=== PATIENT | male | born 1990 | race Caucasian/White ===

== ENCOUNTER 2017-06-15 10:11 | Emergency (ER) | payer OTHER ==
[~2017-06-15] VITALS: Ht 175.3 cm; Wt 115.9 kg
[~2017-06-15 10:11] MED LIST: ALBU17IN INH; BENA25CA4 PO; CLAR10CA3 PO; DOXE25CA PO; FAMO20TA PO; HYDR-3363 PO; HYDR50TA70 PO; MYLASUS16 PO; PRED10TA PO; PRED20TA PO; RANI15TA PO; TYLE325T5 PO; XYZA5TAB2 PO; ZANT1TAB PO
[2017-06-15] MEDS ORDERED: IBUP-1022 PO (10:39)
[2017-06-15] MEDS ORDERED: NAPR500T PO (11:04)
[2017-06-15 11:19] VITALS: BP 136/74
== END 2017-06-15 11:26 | disposition home or self-care (01) ==
LOC: M ED 10:11
DX: S39.011A Strain of muscle, fascia and tendon of abdomen, initial encounter (principal); X50.9XXA Other and unspecified overexertion or strenuous movements or postures, initial encounter; Y92.59 Other trade areas as the place of occurrence of the external cause; Y93.89 Activity, other specified; Y99.0 Civilian activity done for income or pay; J45.909 Unspecified asthma, uncomplicated; K21.9 Gastro-esophageal reflux disease without esophagitis; F17.210 Nicotine dependence, cigarettes, uncomplicated; Z79.52 Long term (current) use of systemic steroids; Z79.899 Other long term (current) drug therapy

== ENCOUNTER → 2019-01-25 | Outpatient (CLI) | payer OTHER ==
[~2019-01-25] MED LIST changes: +IBUP-1022 PO; +NAPR-837 PO; +PRED-351 PO; -PRED10TA PO; +ZANT150T15 PO; -ZANT1TAB PO
--- NOTE | 2019-01-25 14:44 | REP ---
RIGHT KNEE, FIVE VIEWS: HISTORY: Contusion. There is no acute fracture or dislocation. The joint spaces are normal in appearance. IMPRESSION: There is no acute fracture or dislocation. Electronically Signed by Jose Alfredo Rivera MD 01/25/2019 02:47 P
--- NOTE | 2019-01-25 15:03 | REP ---
Right calf: Two views. History: Contusion. Findings: AP and lateral views of the right calf demonstrate normal bones, joints and soft tissues. No fracture or subluxation is seen. Impression: Negative right calf radiographs. Electronically Signed by Sher Muse MD 01/25/2019 02:54 P
== END ==
LOC: M WUC 13:59
PROVIDERS: ATTEND Physician Assistant
DX: S80.01XA Contusion of right knee, initial encounter (principal); S80.11XA Contusion of right lower leg, initial encounter; X58.XXXA Exposure to other specified factors, initial encounter; Y92.89 Other specified places as the place of occurrence of the external cause

== ENCOUNTER 2019-05-15 20:44 | Emergency (ER) | payer OTHER ==
[2019-05-15 22:40] LABS: BASO # 0.1 10^3/uL (0.0-0.2); BASO % 0.3 % (0.0-1.0); EOS # 0.1 10^3/uL (0.0-0.50); EOS % 0.4 % (0.0-3.0); HEMATOCRIT 45.9 % (42.0-52.0); HEMOGLOBIN 16.4 g/dl (13.5-17.5); LYMPH # 2.1 10^3/uL (1.5-6.5); MEAN CORPUSCULAR HEMOGLOBIN 30.7 pg (27.0-33.0); MEAN CORPUSCULAR HGB CONC 35.7 g/dl (32.0-36.5); MONO # 0.7 10^3/uL (0.0-0.8); MONO % 4.1 % (0.0-5.0); NEUTROPHILS # 14.6 10^3/uL (1.8-7.7); NEUTROPHILS % 82.7 % (36.0-66.0); PLATELET COUNT, AUTOMATED 259 10^3/uL (150-450); RED BLOOD COUNT 5.34 10^6/uL (4.30-6.10); WHITE BLOOD COUNT 17.7 10^3/uL (4.0-10.0)
[2019-05-15 23:05] LABS: ALBUMIN 4.2 GM/DL (3.2-5.2); ALT/SGPT 31 U/L (12-78); BILIRUBIN,DIRECT 0.2 MG/DL (0.0-0.2); BLOOD UREA NITROGEN 15 MG/DL (7-18); CALCIUM LEVEL 9.8 MG/DL (8.5-10.1); CARBON DIOXIDE LEVEL 24 MEQ/L (21-32); CHLORIDE LEVEL 106 MEQ/L (98-107); CREATININE FOR GFR 1.24 MG/DL (0.70-1.30); GLOMERULAR FILTRATION RATE > 60.0 (>60); GLUCOSE, FASTING 114 MG/DL (70-100); LIPASE 73 U/L (73-393); POTASSIUM SERUM 3.8 MEQ/L (3.5-5.1); SODIUM LEVEL 140 MEQ/L (136-145)
[2019-05-15] MEDS ORDERED: KETOROLAC 30 MG/ML VIAL (J1885) IV ONE (23:15)
[2019-05-15] MEDS ORDERED: METOCLOPRAMIDE INJ 10MG/2ML VIAL (J2765) IV ONE (23:15)
[2019-05-15] MEDS ORDERED: NS 1,000 ML IV ONE (23:15)
[2019-05-15] MEDS ORDERED: IPRATROPIUM 0.5MG/ALBUTEROL 2.5MG INH SOL UD 3ML (DUONEB)(J7620) NEB PRN (23:15)
[2019-05-16 00:41] VITALS: BP 118/57
[2019-05-16] MEDS ORDERED: METHOCARBAMOL 1,000 MG/10 ML VIAL (J2800) IV ONE (00:45)
[2019-05-16] MEDS ORDERED: ROBA500T PO (01:33)
[2019-05-16] MEDS ORDERED: NAPR-837 PO (01:33)
[2019-05-16] MEDS ORDERED: REGL10TA6 PO (01:34)
--- NOTE | 2019-05-16 10:18 | REP ---
Chest x-ray: Two views. History: Wheezing, elevated white blood cell count, cough. . Comparison study: March 01, 2014 . Findings: The lungs are well inflated and free of infiltrate. The pleural angles are sharp. The heart size is normal. Pulmonary vasculature is not increased. No significant bony abnormality is seen. The soft tissues of the left breast or pectoralis muscle are again noted to be somewhat asymmetric on the frontal radiograph. This is unchanged from 2014 prior study. Impression: No active disease. Electronically Signed by Sher Muse MD 05/16/2019 10:09 A
== END 2019-05-16 01:47 | disposition home or self-care (01) ==
LOC: M ED 20:44
DX: M62.830 Muscle spasm of back (principal); D72.829 Elevated white blood cell count, unspecified
CPT/HCPCS: 71046; 80047; 80048; 80076; 81001; 83690; 85025; 96361; 96374; 96375; 99284; J1885; J2765; J2800

== ENCOUNTER 2019-09-04 12:23 | Emergency (ER) | payer MEDICAID, OTHER, SELFPAY ==
[~2019-09-04] VITALS: Ht 175.3 cm; Wt 112.7 kg
[~2019-09-04 12:23] MED LIST changes: +REGL10TA6 PO; +ROBA500T PO
[2019-09-04] MEDS ORDERED: diphenhydrAMINE INJ 50MG/ML VIAL (J1200) IV ONE (13:00)
[2019-09-04] MEDS ORDERED: methylPREDNISolone INJ 125 MG/2 ML VIAL (J2930) IV ONE (13:00)
[2019-09-04] MEDS ORDERED: FAMOTIDINE INJ 20MG/2ML VIAL (S0028) IVP ONE (13:00)
[2019-09-04] MEDS ORDERED: NS 1,000 ML IV ONE (13:00)
[2019-09-04 13:33] LABS: BASO % 0.2 % (0.0-1.0); EOS # 0.1 10^3/uL (0.0-0.5); EOS % 0.5 % (0.0-3.0); HEMATOCRIT 45.8 % (42.0-52.0); HEMOGLOBIN 15.7 g/dl (13.5-17.5); LYMPH # 2.1 10^3/uL (1.5-5.0); LYMPH % 13.2 % (24.0-44.0); MEAN CORPUSCULAR HEMOGLOBIN 29.3 pg (27.0-33.0); MEAN CORPUSCULAR HGB CONC 34.3 g/dl (32.0-36.5); MEAN CORPUSCULAR VOLUME 85.6 fl (80.0-96.0); MONO # 0.6 10^3/uL (0.0-0.8); MONO % 3.7 % (0.0-5.0); PLATELET COUNT, AUTOMATED 306 10^3/uL (150-450); RED BLOOD COUNT 5.35 10^6/uL (4.30-6.10); WHITE BLOOD COUNT 15.9 10^3/uL (4.0-10.0)
[2019-09-04 14:04] LABS: BLOOD UREA NITROGEN 15 MG/DL (7-18); CALCIUM LEVEL 9.3 MG/DL (8.5-10.1); CARBON DIOXIDE LEVEL 22 MEQ/L (21-32); CHLORIDE LEVEL 105 MEQ/L (98-107); CREATININE FOR GFR 0.95 MG/DL (0.70-1.30); GLOMERULAR FILTRATION RATE > 60.0 (>60); GLUCOSE, FASTING 124 MG/DL (70-100); POTASSIUM SERUM 3.5 MEQ/L (3.5-5.1); SODIUM LEVEL 136 MEQ/L (136-145)
[2019-09-04] MEDS ORDERED: ACETAMINOPHEN TAB 650MG DOSE (2X325MG) PO ONE (14:30)
[2019-09-04] MEDS ORDERED: BENA25CA4 PO (14:54)
[2019-09-04] MEDS ORDERED: ALL10TAB29 PO (14:54)
[2019-09-04] MEDS ORDERED: PRED20TA PO (14:54)
[2019-09-04] MEDS ORDERED: EPIP0.3I2 IM (15:40)
[2019-09-04 15:54] VITALS: BP 129/76
== END 2019-09-04 15:55 | disposition home or self-care (01) ==
LOC: M ED 12:23
DX: L50.9 Urticaria, unspecified (principal); R06.02 Shortness of breath; T78.49XA Other allergy, initial encounter; X58.XXXA Exposure to other specified factors, initial encounter; Y92.89 Other specified places as the place of occurrence of the external cause; K21.9 Gastro-esophageal reflux disease without esophagitis; Z79.899 Other long term (current) drug therapy; F17.210 Nicotine dependence, cigarettes, uncomplicated
CPT/HCPCS: 80048; 85025; 93041; 94760; 96361; 96374; 96375; 99284; J1200; J2930

== ENCOUNTER 2019-09-17 08:18 | Emergency (ER) | payer OTHER, SELFPAY ==
[~2019-09-17] VITALS: Ht 180.3 cm; Wt 110.2 kg
[~2019-09-17 08:18] MED LIST changes: +ALL10TAB29 PO; +EPIP0.3I2 IM
[2019-09-17] MEDS ORDERED: FAMOTIDINE INJ 20MG/2ML VIAL (S0028) IVP ONE (08:45)
[2019-09-17] MEDS ORDERED: diphenhydrAMINE INJ 50MG/ML VIAL (J1200) IV ONE (08:45)
[2019-09-17] MEDS ORDERED: methylPREDNISolone INJ 125 MG/2 ML VIAL (J2930) IV ONE (08:45)
[2019-09-17] MEDS ORDERED: NS 1,000 ML IV ONE (08:45)
[2019-09-17] MEDS: IPRATROPIUM 0.5MG/ALBUTEROL 2.5MG INH SOL UD 3ML (DUONEB)(J7620) NEB SCH ×2 (09:03→09:40)
[2019-09-17 09:05] LABS: BASO % 0.2 % (0.0-1.0); EOS # 0.1 10^3/uL (0.0-0.5); EOS % 0.4 % (0.0-3.0); HEMATOCRIT 46.7 % (42.0-52.0); LYMPH # 2.9 10^3/uL (1.5-5.0); LYMPH % 17.8 % (24.0-44.0); MEAN CORPUSCULAR HEMOGLOBIN 29.6 pg (27.0-33.0); MEAN CORPUSCULAR HGB CONC 34.3 g/dl (32.0-36.5); MEAN CORPUSCULAR VOLUME 86.5 fl (80.0-96.0); MONO # 0.7 10^3/uL (0.0-0.8); MONO % 4.1 % (0.0-5.0); NEUTROPHILS # 12.3 10^3/uL (1.5-8.5); NEUTROPHILS % 76.3 % (36.0-66.0); PLATELET COUNT, AUTOMATED 263 10^3/uL (150-450); WHITE BLOOD COUNT 16.1 10^3/uL (4.0-10.0)
[2019-09-17] MEDS ORDERED: EPIN0.3I11 (09:19)
[2019-09-17] MEDS ORDERED: FAMO1TAB11 (09:19)
[2019-09-17] MEDS ORDERED: LEVOTAB10 (09:19)
[2019-09-17 09:29] LABS: BLOOD UREA NITROGEN 14 MG/DL (7-18); C REACTIVE PROTEIN QUANTITATIV 2.46 MG/DL (0.00-0.30); CALCIUM LEVEL 9.1 MG/DL (8.5-10.1); CARBON DIOXIDE LEVEL 26 MEQ/L (21-32); CHLORIDE LEVEL 107 MEQ/L (98-107); CREATININE FOR GFR 0.85 MG/DL (0.70-1.30); GLOMERULAR FILTRATION RATE > 60.0 (>60); GLUCOSE, FASTING 99 MG/DL (70-100); POTASSIUM SERUM 4.2 MEQ/L (3.5-5.1); SODIUM LEVEL 138 MEQ/L (136-145)
[2019-09-17 09:35] LABS: ERYTHROCYTE SEDIMENTATION RATE 14 mm/hr (0-15)
--- NOTE | 2019-09-17 10:33 | REP ---
CHEST, TWO VIEWS: There is no evidence of acute infiltrate. No pleural effusion is seen. The heart is normal in size. The mediastinal silhouette is unremarkable. The visualized osseous structures are intact. IMPRESSION: No acute pulmonary disease. Electronically Signed by Malvin Paz MD 09/17/2019 04:21 P
[2019-09-17] MEDS ORDERED: PRED20TA PO (11:31)
[2019-09-17 11:41] VITALS: BP 106/54
== END 2019-09-17 11:51 | disposition home or self-care (01) ==
LOC: M ED 08:18
DX: T78.40XA Allergy, unspecified, initial encounter (principal); L50.9 Urticaria, unspecified; R06.89 Other abnormalities of breathing; R22.0 Localized swelling, mass and lump, head; R06.02 Shortness of breath; Z79.899 Other long term (current) drug therapy
CPT/HCPCS: 71046; 80048; 85025; 85652; 86140; 93041; 94760; 96361; 96374; 96375; 99284; J1200; J2930

== ENCOUNTER → 2019-09-24 | Outpatient (CLI) | payer OTHER ==
[~2019-09-24] MED LIST changes: +EPIN0.3I11; +FAMO1TAB11; +LEVOTAB10
[2019-09-24 09:57] LABS: HEMATOCRIT 44.8 % (42.0-52.0); HEMOGLOBIN 14.6 g/dl (13.5-17.5); MEAN CORPUSCULAR HEMOGLOBIN 29.1 pg (27.0-33.0); MEAN CORPUSCULAR HGB CONC 32.6 g/dl (32.0-36.5); MEAN CORPUSCULAR VOLUME 89.2 fl (80.0-96.0); PLATELET COUNT, AUTOMATED 269 10^3/uL (150-450); RED BLOOD COUNT 5.02 10^6/uL (4.30-6.10); WHITE BLOOD COUNT 20.2 10^3/uL (4.0-10.0)
[2019-09-24 10:28] LABS: ATYPICAL LYMPH 3 % (0-5); LYMPHOCYTES 26 % (16-44); MONOCYTES 2 % (0-5); MYELOCYTES 1 % (0-0); NEUTROPHILS 66 % (28-66); PLATELET ESTIMATE NORMAL (NORMAL)
[2019-09-24 10:29] LABS: ANISOCYTOSIS 1+
[2019-09-24 10:37] LABS: ALBUMIN 3.4 GM/DL (3.2-5.2); ALT/SGPT 26 U/L (12-78); BILIRUBIN,TOTAL 0.2 MG/DL (0.2-1.0); BLOOD UREA NITROGEN 18 MG/DL (7-18); CARBON DIOXIDE LEVEL 26 MEQ/L (21-32); CHLORIDE LEVEL 107 MEQ/L (98-107); CREATININE FOR GFR 0.82 MG/DL (0.70-1.30); GLOMERULAR FILTRATION RATE > 60.0 (>60); GLUCOSE, FASTING 88 MG/DL (70-100); POTASSIUM SERUM 4.2 MEQ/L (3.5-5.1); RHEUMATOID FACTOR QUANT < 10.0 IU/ML (<15.0); SODIUM LEVEL 141 MEQ/L (136-145); THYROGLOBULIN ANTIBODY < 15.0 U/ML (<60.0); THYROID PEROXIDASE ANTIBODY < 28.0 U/ML (<60.0); THYROID STIMULATING HORMONE 0.418 uIU/ML (0.358-3.740); THYROXINE (T4) 8.6 UG/DL (4.5-12.0); TOTAL PROTEIN 7.1 GM/DL (6.4-8.2)
[2019-09-24 11:05] LABS: ERYTHROCYTE SEDIMENTATION RATE 9 mm/hr (0-15)
== END ==
LOC: M LAB 08:56
PROVIDERS: ATTEND Allergy & Immunology Allergy
DX: L50.1 Idiopathic urticaria (principal)

== ENCOUNTER → 2019-12-15 | Outpatient (CLI) | payer OTHER ==
--- NOTE | 2019-12-15 16:33 | REP ---
REASON: Pain after trauma yesterday. COMPARISON: 03/22/2006 There is a tiny flake-like radiodensity distal to the distal pole of the scaphoid and laterally. This represents a change from the prior exam. IMPRESSION: Findings suggestive of a tiny avulsion fracture of the distal pole of the scaphoid. Unreviewed
== END ==
LOC: M WUC 12:58
PROVIDERS: ATTEND Physician Assistant
DX: M25.532 Pain in left wrist (principal)

== ENCOUNTER 2020-02-04 10:22 | Emergency (ER) | payer OTHER ==
[~2020-02-04] VITALS: Ht 177.8 cm; Wt 113.6 kg
[2020-02-04] MEDS ORDERED: ALL10TAB29 (10:36)
[2020-02-04 11:08] LABS: BASO # 0.1 10^3/uL (0.0-0.2); BASO % 0.5 % (0.0-1.0); EOS # 0.3 10^3/uL (0.0-0.5); HEMATOCRIT 43.3 % (42.0-52.0); HEMOGLOBIN 14.8 g/dl (13.5-17.5); LYMPH % 19.4 % (24.0-44.0); MEAN CORPUSCULAR HEMOGLOBIN 29.7 pg (27.0-33.0); MEAN CORPUSCULAR HGB CONC 34.2 g/dl (32.0-36.5); MEAN CORPUSCULAR VOLUME 86.8 fl (80.0-96.0); MONO # 0.9 10^3/uL (0.0-0.8); MONO % 6.2 % (0.0-5.0); NEUTROPHILS # 10.9 10^3/uL (1.5-8.5); NEUTROPHILS % 71.4 % (36.0-66.0); PLATELET COUNT, AUTOMATED 254 10^3/uL (150-450); RED BLOOD COUNT 4.99 10^6/uL (4.30-6.10); WHITE BLOOD COUNT 15.2 10^3/uL (4.0-10.0)
[2020-02-04 11:40] LABS: ALBUMIN 3.9 GM/DL (3.2-5.2); ALT/SGPT 28 U/L (12-78); BILIRUBIN,DIRECT 0.1 MG/DL (0.0-0.2); BILIRUBIN,TOTAL 0.6 MG/DL (0.2-1.0); CK-MB VALUE MASS 1.8 NG/ML (<3.6); CPK CREATINE PHOSPHOKINASE 157 U/L (39-308); MB/CK RELATIVE INDEX 1.15 (< OR =4); TOTAL PROTEIN 7.6 GM/DL (6.4-8.2); TROPONIN I < 0.02 NG/ML (< 0.10)
--- NOTE | 2020-02-04 12:47 | REP ---
Head CT without contrast: History: ,, syncope, left facial trauma. Comparison study: No comparison study. CT findings: Bone window settings demonstrate an intact bony calvarium. There is no evidence of skull fracture or incidental bony calvarial lesion. There are mucosal changes and partial opacification of the ethmoid air cells bilaterally. The visualized paranasal sinuses appear otherwise clear. No intraorbital abnormality is seen. On soft tissue window setting images; the lateral, third, and fourth ventricles are normal in size and position. Paz-white differentiation pattern is normal above and below the tentorium. There are is no evidence of intracranial hemorrhage. No mass, edema, infarction, or midline shift is seen. No extra-axial fluid collection is appreciated. Impression: Negative noncontrast head CT. Electronically Signed by Sher Muse MD 02/04/2020 12:38 P
[2020-02-04] MEDS ORDERED: KETOROLAC 30 MG/ML 1ML VIAL IV ONE (13:00)
[2020-02-04] MEDS ORDERED: ONDANSETRON 4MG/2ML VIAL IV ONE (13:00)
[2020-02-04] MEDS ORDERED: NS 1,000 ML IV ONE (13:00)
[2020-02-04] MEDS ORDERED: ACETAMINOPHEN TAB 650MG DOSE (2X325MG) PO ONE (13:00)
--- NOTE | 2020-02-04 13:11 | REP ---
MAXILLOFACIAL CT STUDY WITHOUT CONTRAST: HISTORY: Trauma, syncope, left facial swelling. TECHNIQUE: Helical scanning is acquired, and 3 mm axial images are reformatted. Coronal and sagittal MPR images are generated and reviewed. CT FINDINGS: There is partial opacification with mucosal thickening in the ethmoid sinuses bilaterally. Otherwise, the paranasal sinuses are clear. Zygomatic arches appear intact. Orbital margins are unremarkable. There is some soft tissue swelling along the left lateral orbital margin. No nasal fracture is seen. No mandibular fracture is noted. Bony nasal septum is essentially midline. No intraorbital hematoma is seen. IMPRESSION: Mild mucosal changes with partial opacification of the ethmoid air cells bilaterally. There is mild soft tissue swelling along the lateral orbital margin on the left. No fracture seen. Electronically Signed by Sher Muse MD 02/04/2020 02:37 P
[2020-02-04] MEDS ORDERED: ONDA4TAB6 PO (13:48)
[2020-02-04] MEDS ORDERED: IBUP-1022 PO (13:48)
[2020-02-04 13:55] VITALS: BP 140/66
--- NOTE | 2020-02-04 18:38 | ECGEPIP ---
[facility] - ED Test Date: 2020-02-04 Pat Name: AKIN SCOTT Department: Room: - Gender: Male Service Specialist: : 1990 Requested By: NEREYDA Garcia PA-C Order Number: [id number] Reading MD: Yolis Crow Measurements Intervals [place] Rate: 61 P: -15 WA: 164 QRS: 68 QRSD: 97 T: 42 QT: 407 QTc: 412 Interpretive Statements SINUS RHYTHM WITH SINUS ARRHYTHMIA DECREASED RATE 10/23/15 Electronically Signed on 02-04-2020 18:38:24 EDT by Yolis Crow
== END 2020-02-04 13:56 | disposition home or self-care (01) ==
LOC: M ED 10:22
DX: R55 Syncope and collapse (principal); S00.81XA Abrasion of other part of head, initial encounter; W18.39XA Other fall on same level, initial encounter; Y92.531 Health care provider office as the place of occurrence of the external cause; Y93.01 Activity, walking, marching and hiking; Y99.8 Other external cause status; K21.9 Gastro-esophageal reflux disease without esophagitis; F17.200 Nicotine dependence, unspecified, uncomplicated; Z79.899 Other long term (current) drug therapy
CPT/HCPCS: 70450; 70486; 80047; 80076; 82550; 82553; 84443; 85025; 93005; 96361; 96374; 96375; 99284; J1885; J2405

== ENCOUNTER 2020-06-18 20:48 | Emergency (ER) | payer OTHER ==
[~2020-06-18] VITALS: Ht 175.3 cm; Wt 113.6 kg
[~2020-06-18 20:48] MED LIST changes: -ALL10TAB29 PO; +CETI-24; +CETI-24 PO; +ONDA4TAB6 PO
[2020-06-18] MEDS ORDERED: LEVOTAB10 (20:55)
[2020-06-18] MEDS ORDERED: AUGM875T28 PO (22:38)
[2020-06-18] MEDS ORDERED: AUGMENTIN 875 MG TAB PO ONE (22:45)
[2020-06-18 22:50] VITALS: BP 134/84
== END 2020-06-18 22:53 | disposition home or self-care (01) ==
LOC: M ED 20:48
DX: S01.511A Laceration without foreign body of lip, initial encounter (principal); W54.0XXA Bitten by dog, initial encounter; W54.1XXA Struck by dog, initial encounter; Y92.019 Unspecified place in single-family (private) house as the place of occurrence of the external cause; Y99.9 Unspecified external cause status

== ENCOUNTER 2022-03-15 20:13 | Emergency (ER) | payer OTHER ==
[~2022-03-15] VITALS: Ht 177.8 cm; Wt 118.2 kg
[~2022-03-15 20:13] MED LIST changes: +AUGM875T28 PO
[2022-03-15 20:16] VITALS: BP 117/71
[2022-03-15] MEDS ORDERED: ACETAMINOPHEN 500 MG TAB PO ONE (21:50)
== END 2022-03-15 23:53 | disposition home or self-care (01) ==
LOC: M ED 20:13
DX: S93.401A Sprain of unspecified ligament of right ankle, initial encounter (principal); V84.7XXA Person on outside of special agricultural vehicle injured in nontraffic accident, initial encounter; W28.XXXA Contact with powered lawn mower, initial encounter; Y99.0 Civilian activity done for income or pay

== ENCOUNTER → 2023-04-26 | Outpatient (CLI) | payer MEDICAID | LOC: M OUTALCOH 08:03 | PROVIDERS: ATTEND Psychiatry & Neurology Psychiatry | DX: Z03.89 Encounter for observation for other suspected diseases and conditions ruled out (principal) ==

== ENCOUNTER 2023-05-03 10:18 | Outpatient (RCR) | payer MEDICAID | END 2023-06-02 | LOC: M OUTALCOH 10:18 | PROVIDERS: ATTEND Psychiatry & Neurology Psychiatry | DX: Z03.89 Encounter for observation for other suspected diseases and conditions ruled out (principal) ==

== ENCOUNTER → 2024-08-24 | Outpatient (CLI) | payer OTHER ==
[~2024-08-24] MED LIST changes: +ONDA-282 PO; -ONDA4TAB6 PO
[2024-08-24 09:23] LABS: BASO # 0.1 10^3/uL (0.0-0.2); BASO % 0.8 % (0.0-1.0); EOS # 0.3 10^3/uL (0.0-0.5); EOS % 3.5 % (0.0-3.0); HEMATOCRIT 45.8 % (42.0-52.0); HEMOGLOBIN 15.5 g/dl (13.5-17.5); LYMPH # 2.9 10^3/uL (1.5-5.0); LYMPH % 33.1 % (24.0-44.0); MEAN CORPUSCULAR HEMOGLOBIN 29.6 pg (27.0-33.0); MEAN CORPUSCULAR HGB CONC 33.8 g/dl (32.0-36.5); MEAN CORPUSCULAR VOLUME 87.4 fl (80.0-96.0); MONO # 0.7 10^3/uL (0.0-0.8); MONO % 7.5 % (2.0-8.0); NEUTROPHILS # 4.8 10^3/uL (1.5-8.5); NEUTROPHILS % 54.6 % (36.0-66.0); PLATELET COUNT, AUTOMATED 231 10^3/uL (150-450); RED BLOOD COUNT 5.24 10^6/uL (4.30-6.10); WHITE BLOOD COUNT 8.8 10^3/uL (4.0-10.0)
[2024-08-24 09:46] LABS: ALBUMIN 3.7 G/DL (3.2-5.2); ALKALINE PHOSPHATASE 72 U/L (40-129); ALT/SGPT 34 U/L (7.0-40); AST/SGOT 17 U/L (<34); BILIRUBIN,TOTAL 0.8 MG/DL (0.3-1.2); BLOOD UREA NITROGEN 22 MG/DL (9-23); CALCIUM LEVEL 9.6 MG/DL (8.5-10.1); CARBON DIOXIDE LEVEL 26 MMOL/L (20-31); CHLORIDE LEVEL 107 MMOL/L (98-107); CHOLESTEROL LEVEL 216 MG/DL (<200); CHOLESTEROL RISK RATIO 5.01 (<5); CREATININE FOR GFR 0.92 MG/DL (0.70-1.30); GLOMERULAR FILTRATION RATE > 60.0 (>60); GLUCOSE, FASTING 96 MG/DL (60-100); HDL CHOLESTEROL 43.1 MG/DL (>40); LDL CHOLESTEROL 141.1 MG/DL (<100); NON-HDL-C 172.9 MG/DL; POTASSIUM SERUM 4.3 MMOL/L (3.5-5.1); SODIUM LEVEL 140 MMOL/L (136-145); TOTAL PROTEIN 7.3 G/DL (5.7-8.2); TRIGLYCERIDES LEVEL 159 MG/DL (<150)
== END ==
LOC: M LAB 08:24
PROVIDERS: ATTEND Physician Assistant
DX: E78.2 Mixed hyperlipidemia (principal)

== ENCOUNTER → 2024-09-17 | Outpatient (CLI) | payer OTHER | LOC: M OUTALCOH 12:37 | PROVIDERS: ATTEND Psychiatry & Neurology Psychiatry | DX: F12.10 Cannabis abuse, uncomplicated (principal) ==

== ENCOUNTER → 2025-09-04 | Outpatient (CLI) | payer OTHER ==
[~2025-09-04] MED LIST changes: -IBUP-1022 PO; +IBUP600T42 PO
== END ==
LOC: M RAD 11:58
PROVIDERS: ATTEND Physician Assistant
DX: M25.552 Pain in left hip (principal); M54.50 Low back pain, unspecified

== ENCOUNTER 2025-09-13 23:27 | Emergency (ER) | payer OTHER ==
[~2025-09-13] VITALS: Ht 180.3 cm; Wt 119.4 kg
[2025-09-14 00:11] LABS: VENOUS BASE EXCESS -2.1 (-2.0-2.0); VENOUS HCO3 22.6 MMOL/L (23.0-27.0); VENOUS O2 SATURATION 99.0 % (60.0-80.0); VENOUS PARTIAL PRESSURE CO2 38.8 mmHg (38.0-50.0); VENOUS PARTIAL PRESSURE O2 217.4 mmHg (30.0-50.0); VENOUS PH 7.383 UNITS (7.330-7.430); VENOUS STANDARD HCO3 22.7 MMOL/L; VENOUS TOTAL CO2 23.8 MMOL/L (24.0-28.0)
[2025-09-14] MEDS: ALBUTEROL SULFATE 2.5 MG/0.5 ML INH CONCENTRATE NEB SOLN INH ONE ×2 (00:15→01:09)
[2025-09-14 01:38] VITALS: BP 132/60; TEMP 96; O2SAT 95
[2025-09-14] MEDS: ALBUTEROL 90 MCG/ACT 8 GM HFA INHALER INH ONE (01:40)
== END 2025-09-14 01:46 | disposition home or self-care (01) ==
LOC: M ED 23:27
DX: T59.811A Toxic effect of smoke, accidental (unintentional), initial encounter (principal); T58.91XA Toxic effect of carbon monoxide from unspecified source, accidental (unintentional), initial encounter; R00.1 Bradycardia, unspecified; Z79.2 Long term (current) use of antibiotics; Z79.899 Other long term (current) drug therapy